=== PATIENT | male | born 1980 | race Caucasian/White ===

== ENCOUNTER 2025-01-08 20:03 | Emergency (ER) | payer OTHER ==
[~2025-01-08] VITALS: Ht 180.3 cm; Wt 114.0 kg
[2025-01-08 20:15] VITALS: O2SAT 98
[2025-01-08 20:56] LABS: BASOPHILS % 0.9 % (0.0-2.0); EOSINOPHILS % 3.4 % (0.0-5.0); HEMATOCRIT. 43.5 % (42.0-52.0); HEMOGLOBIN. 14.3 g/dL (14.0-18.0); LYMPHOCYTES % 40.5 % (20.0-50.0); MEAN PLATELET VOLUME 8.6 fl (7.4-10.4); MONOCYTES % 7.7 % (2.0-8.0); NEUTROPHILS % 47.5 % (40.0-76.0); PLATELET 281 x1000/uL (130-400); RED BLOOD CELL COUNT 4.60 mill/uL (4.7-6.1); RED CELL DISTRIBUTION WIDTH 14.2 % (11.6-14.6)
[2025-01-08 21:05] LABS: INR 1.0
[2025-01-08 21:06] LABS: CREATININE 0.7 mg/dL (0.6-1.3); UREA NITROGEN BLOOD 10 mg/dL (9-23)
[2025-01-08 21:07] LABS: TROPONIN I HIGH SENSITIVITY < 4 ng/L (3.0-53)
[2025-01-08] MEDS: ACETAMINOPHEN 325MG TABLET PO ONE (23:09)
[2025-01-08] MEDS: IBUPROFEN 400MG TABLET PO ONE (23:09)
[2025-01-08] MEDS: MAGNESIUM/ALUMINUM HYDROXIDE/SIMETHICONE 30ML UDC PO ONE (23:09)
[2025-01-08] MEDS: FAMOTIDINE 20MG/2ML VIAL IV ONE (23:11)
[2025-01-08] MEDS: IOHEXOL-350 100 ML BOTTLE ONE (23:53)
[2025-01-09 00:40] VITALS: BP 118/73; PULSE 59; RESP 14; TEMP 36.5; O2SAT 100
== END 2025-01-09 00:41 | disposition home or self-care (01) ==
LOC: ER 20:03 → CMPBEDREQ 01-09 08:56
DX: R07.89 Other chest pain (principal); R06.02 Shortness of breath; E78.00 Pure hypercholesterolemia, unspecified; Z90.49 Acquired absence of other specified parts of digestive tract; Z86.718 Personal history of other venous thrombosis and embolism; Z79.01 Long term (current) use of anticoagulants
CPT/HCPCS: 99285; 96374; 71275; 71045; 80048; 83880; 85025; 85379; 85610; 85730; 84484; 36415; 93005; Q9967; J1308